=== PATIENT | female | born 1975 | race Caucasian/White ===

== ENCOUNTER → 2017-04-19 | Outpatient (REF) | payer OTHER ==
[2017-04-19 12:17] LABS: ALBUMIN 3.4 GM/DL (3.2-5.2); ALBUMIN/GLOBULIN RATIO 0.77 (1.00-1.93); ALKALINE PHOSPHATASE 65 U/L (45-117); ALT/SGPT 48 U/L (12-78); ANION GAP 5 MEQ/L (8-16); AST/SGOT 28 U/L (15-37); BILIRUBIN,TOTAL 0.5 MG/DL (0.2-1.0); BLOOD UREA NITROGEN 17 MG/DL (7-18); CALCIUM LEVEL 8.6 MG/DL (8.5-10.1); CARBON DIOXIDE LEVEL 28 MEQ/L (21-32); CHLORIDE LEVEL 107 MEQ/L (98-107); CHOLESTEROL LEVEL 183 MG/DL (<200); CREATININE FOR GFR 0.78 MG/DL (0.55-1.02); GLOMERULAR FILTRATION RATE > 60.0 (>58); GLUCOSE, FASTING 136 MG/DL (70-105); POTASSIUM SERUM 4.2 MEQ/L (3.5-5.1); SODIUM LEVEL 140 MEQ/L (136-145); TOTAL PROTEIN 7.8 GM/DL (6.4-8.2); TRIGLYCERIDES LEVEL 253 MG/DL (<150)
[2017-04-24 00:11] LABS: BASOPHILS 1 % (Not Estab.); EOSINOPHILS 2 % (Not Estab.); HCT 41.8 % (34.0-46.6); HGB 14.1 g/dL (11.1-15.9); LYMPHOCYTES 46 % (Not Estab.); MONOCYTES ABSOLUTE 0.3 x10E3/uL (0.1-0.9); WBC 5.5 x10E3/uL (3.4-10.8)
[2017-05-07 10:55] LABS: ABSOLUTE CD4 HELPER 613 /uL (359-1519)
== END ==
LOC: M SFHCPLAZ 04-18 09:52
PROVIDERS: ATTEND Family Medicine
DX: E66.01 Morbid (severe) obesity due to excess calories (principal); B20 Human immunodeficiency virus [HIV] disease

== ENCOUNTER 2017-07-26 19:56 | Emergency (ER) | payer OTHER ==
[2017-07-26] MEDS: NS 1,000 ML IV (22:00)
[2017-07-26] MEDS: ALBUTEROL SULFATE 2.5 MG/0.5 ML INH NEB SOLN NEB (22:34)
[2017-07-26 22:35] LABS: BASO # 0.1 10^3/uL (0.0-0.2); BASO % 0.8 % (0.0-1.0); EOS # 0.2 10^3/uL (0.0-0.50); EOS % 3.2 % (0.0-3.0); HEMATOCRIT 43.3 % (36.0-47.0); IMMATURE GRANULOCYTE % 0.4 % (0-0); LYMPH # 3.1 10^3/uL (1.5-4.5); LYMPH % 40.9 % (24.0-44.0); MEAN CORPUSCULAR HEMOGLOBIN 29.7 pg (27.0-33.0); MEAN CORPUSCULAR HGB CONC 32.3 g/dl (32.0-36.5); MEAN CORPUSCULAR VOLUME 91.9 fl (80.0-96.0); MONO # 0.4 10^3/uL (0.0-0.8); MONO % 5.5 % (0.0-5.0); NEUTROPHILS # 3.7 10^3/uL (1.8-7.7); NEUTROPHILS % 49.2 % (36.0-66.0); PLATELET COUNT, AUTOMATED 190 10^3/uL (150-450); RED BLOOD COUNT 4.71 10^6/uL (4.00-5.40); RED CELL DISTRIBUTION WIDTH 12.3 % (11.5-14.5); WHITE BLOOD COUNT 7.5 10^3/uL (4.0-10.0)
[2017-07-26 22:49] LABS: INR 0.93; PROTHROMBIN TIME 12.5 SECONDS (12.4-14.5)
[2017-07-26 23:04] LABS: LACTIC ACID SEPSIS PROTOCOL 1.7 MMOL/L (0.4-2.0)
[2017-07-26 23:05] LABS: ALBUMIN 3.3 GM/DL (3.2-5.2); ALBUMIN/GLOBULIN RATIO 0.62 (1.00-1.93); ALKALINE PHOSPHATASE 97 U/L (45-117); ALT/SGPT 124 U/L (12-78); ANION GAP 4 MEQ/L (8-16); AST/SGOT 89 U/L (7-37); BILIRUBIN,DIRECT 0.2 MG/DL (0.0-0.2); BILIRUBIN,TOTAL 0.4 MG/DL (0.2-1.0); BLOOD UREA NITROGEN 11 MG/DL (7-18); CALCIUM LEVEL 8.4 MG/DL (8.5-10.1); CARBON DIOXIDE LEVEL 30 MEQ/L (21-32); CHLORIDE LEVEL 102 MEQ/L (98-107); CPK CREATINE PHOSPHOKINASE 59 U/L (26-192); CREATININE FOR GFR 0.81 MG/DL (0.55-1.02); GLOMERULAR FILTRATION RATE > 60.0 (>58); GLUCOSE, FASTING 305 MG/DL (70-105); POTASSIUM SERUM 3.8 MEQ/L (3.5-5.1); SODIUM LEVEL 136 MEQ/L (136-145); TOTAL PROTEIN 8.6 GM/DL (6.4-8.2); TROPONIN I < 0.02 NG/ML (< 0.10)
[2017-07-26 23:06] LABS: MB/CK RELATIVE INDEX 1.69 (< OR =4); NT-PRO BNP 114 PG/ML (<125)
[2017-07-26] MEDS: BACTRIM 160MG/800MG DS TAB PO (23:15)
[2017-07-26 23:40] LABS: CONTROL LINE MONO INT CTR LINE PRESENT; MONO SCRN NEGATIVE (NEGATIVE)
== END 2017-07-27 00:50 | disposition home or self-care (01) ==
LOC: M ED 19:56
DX: J44.0 Chronic obstructive pulmonary disease with (acute) lower respiratory infection (principal); J44.1 Chronic obstructive pulmonary disease with (acute) exacerbation; E11.65 Type 2 diabetes mellitus with hyperglycemia; R07.89 Other chest pain; R26.2 Difficulty in walking, not elsewhere classified; H92.02 Otalgia, left ear; R20.9 Unspecified disturbances of skin sensation; B20 Human immunodeficiency virus [HIV] disease; K76.0 Fatty (change of) liver, not elsewhere classified; I10 Essential (primary) hypertension; G40.909 Epilepsy, unspecified, not intractable, without status epilepticus; F20.0 Paranoid schizophrenia; F17.210 Nicotine dependence, cigarettes, uncomplicated; Z88.5 Allergy status to narcotic agent; Z88.8 Allergy status to other drugs, medicaments and biological substances; Z88.0 Allergy status to penicillin; Z88.3 Allergy status to other anti-infective agents; Z79.899 Other long term (current) drug therapy; Z79.84 Long term (current) use of oral hypoglycemic drugs; Z79.82 Long term (current) use of aspirin
CPT/HCPCS: 71046

== ENCOUNTER → 2017-09-17 | Outpatient (REF) | payer OTHER, MEDICAID ==
[2017-09-17 19:04] LABS: BASO # 0.1 10^3/uL (0.0-0.2); BASO % 0.8 % (0.0-1.0); EOS # 0.1 10^3/uL (0.0-0.50); EOS % 2.3 % (0.0-3.0); HEMATOCRIT 43.5 % (36.0-47.0); HEMOGLOBIN 14.1 g/dl (12.0-16.0); IMMATURE GRANULOCYTE % 0.3 % (0-3.0); LYMPH # 2.8 10^3/uL (1.5-4.5); LYMPH % 46.2 % (24.0-44.0); MEAN CORPUSCULAR HEMOGLOBIN 29.9 pg (27.0-33.0); MEAN CORPUSCULAR HGB CONC 32.4 g/dl (32.0-36.5); MEAN CORPUSCULAR VOLUME 92.4 fl (80.0-96.0); MONO # 0.4 10^3/uL (0.0-0.8); MONO % 5.9 % (0.0-5.0); NEUTROPHILS # 2.7 10^3/uL (1.8-7.7); NEUTROPHILS % 44.5 % (36.0-66.0); PLATELET COUNT, AUTOMATED 193 10^3/uL (150-450); RED BLOOD COUNT 4.71 10^6/uL (4.00-5.40); RED CELL DISTRIBUTION WIDTH 12.9 % (11.5-14.5); WHITE BLOOD COUNT 6.1 10^3/uL (4.0-10.0)
[2017-09-17 19:16] LABS: ALBUMIN 3.5 GM/DL (3.2-5.2); ALBUMIN/GLOBULIN RATIO 0.73 (1.00-1.93); ALKALINE PHOSPHATASE 88 U/L (45-117); ALT/SGPT 115 U/L (12-78); ANION GAP 8 MEQ/L (8-16); AST/SGOT 92 U/L (7-37); BILIRUBIN,TOTAL 0.7 MG/DL (0.2-1.0); BLOOD UREA NITROGEN 9 MG/DL (7-18); CALCIUM LEVEL 8.7 MG/DL (8.5-10.1); CARBON DIOXIDE LEVEL 28 MEQ/L (21-32); CHLORIDE LEVEL 102 MEQ/L (98-107); CHOLESTEROL LEVEL 211 MG/DL (<200); CHOLESTEROL RISK RATIO 6.028 (<5); CREATININE FOR GFR 0.73 MG/DL (0.55-1.30); GLOMERULAR FILTRATION RATE > 60.0 (>58); GLUCOSE, FASTING 196 MG/DL (70-100); HDL CHOLESTEROL 35 MG/DL (>40); LDL CHOLESTEROL 110.4 MG/DL (<100); NON-HDL-C 176 MG/DL; POTASSIUM SERUM 4.2 MEQ/L (3.5-5.1); SODIUM LEVEL 138 MEQ/L (136-145); TOTAL PROTEIN 8.3 GM/DL (6.4-8.2); TRIGLYCERIDES LEVEL 328 MG/DL (<150)
[2017-09-17 19:43] LABS: ESTIMATED AVERAGE GLUCOSE 206 MG/DL (60-110); HEMOGLOBIN A1c 8.8 %
== END ==
LOC: M LAB REF 17:56
DX: Z13.9 Encounter for screening, unspecified (principal)

== ENCOUNTER 2018-04-09 18:47 | Emergency (ER) | payer OTHER, MEDICAID ==
[2018-04-09] MEDS: BUDESONIDE 0.25 MG/2 ML INHALATION SUSPENSION INH (20:23)
[2018-04-09] MEDS: IPRATROPIUM 0.5MG/ALBUTEROL 2.5MG INH SOL UD 3ML (DUONEB)(J7620) NEB ×3 (20:23→20:41)
[2018-04-09 21:31] LABS: BASO # 0.1 10^3/uL (0.0-0.2); BASO % 0.7 % (0.0-1.0); EOS # 0.2 10^3/uL (0.0-0.50); EOS % 2.2 % (0.0-3.0); HEMATOCRIT 42.4 % (36.0-47.0); IMMATURE GRANULOCYTE % 0.3 % (0-3.0); LYMPH # 3.2 10^3/uL (1.5-4.5); LYMPH % 32.4 % (24.0-44.0); MEAN CORPUSCULAR HEMOGLOBIN 30.2 pg (27.0-33.0); MEAN CORPUSCULAR VOLUME 91.6 fl (80.0-96.0); MONO # 0.6 10^3/uL (0.0-0.8); MONO % 6.3 % (0.0-5.0); NEUTROPHILS # 5.7 10^3/uL (1.8-7.7); NEUTROPHILS % 58.1 % (36.0-66.0); PLATELET COUNT, AUTOMATED 209 10^3/uL (150-450); RED BLOOD COUNT 4.63 10^6/uL (4.00-5.40); RED CELL DISTRIBUTION WIDTH 13.3 % (11.5-14.5); WHITE BLOOD COUNT 9.8 10^3/uL (4.0-10.0)
[2018-04-09 21:34] LABS: VENOUS BASE EXCESS -1.2 (-2.0-2.0); VENOUS HCO3 25.8 MEQ/L (23.0-27.0); VENOUS O2 SATURATION 79.1 % (60.0-80.0); VENOUS PARTIAL PRESSURE CO2 51.9 mmHg (38.0-50.0); VENOUS PARTIAL PRESSURE O2 44.3 mmHg (30.0-50.0); VENOUS PH 7.314 UNITS (7.330-7.430); VENOUS TOTAL CO2 27.4 MEQ/L (24.0-28.0)
[2018-04-09 21:37] LABS: CONTROL LINE HCG INT CTR LINE PRESENT; HCG, SERUM QUALITATIVE NEGATIVE (NEGATIVE)
[2018-04-09 21:43] LABS: CONTROL LINE UCG INT CTR LINE PRESENT; URINE PREG TEST NEGATIVE (NEGATIVE)
[2018-04-09 21:47] LABS: ANION GAP 6 MEQ/L (8-16); BLOOD UREA NITROGEN 9 MG/DL (7-18); CALCIUM LEVEL 8.9 MG/DL (8.5-10.1); CARBON DIOXIDE LEVEL 28 MEQ/L (21-32); CHLORIDE LEVEL 106 MEQ/L (98-107); CK-MB VALUE MASS < 1.0 NG/ML (<3.6); CPK CREATINE PHOSPHOKINASE 90 U/L (26-192); CREATININE FOR GFR 0.77 MG/DL (0.55-1.30); GLOMERULAR FILTRATION RATE > 60.0 (>58); GLUCOSE, FASTING 143 MG/DL (70-100); MB/CK RELATIVE INDEX 1.11 (< OR =4); POTASSIUM SERUM 3.7 MEQ/L (3.5-5.1); SODIUM LEVEL 140 MEQ/L (136-145); TROPONIN I < 0.02 NG/ML (< 0.10)
[2018-04-09 22:01] LABS: LACTIC ACID SEPSIS PROTOCOL 1.5 MMOL/L (0.4-2.0)
[2018-04-10] MEDS: BENZONATATE 100 MG CAP PO (00:39)
[2018-04-10] MEDS: ACETAMINOPHEN TAB 650MG DOSE (2X325MG) PO (00:39)
[2018-04-10] MEDS: AZITHROMYCIN 250 MG TAB PO (00:40)
== END 2018-04-10 00:45 | disposition home or self-care (01) ==
LOC: M ED 04-10 00:45
DX: J44.0 Chronic obstructive pulmonary disease with (acute) lower respiratory infection (principal); R94.31 Abnormal electrocardiogram [ECG] [EKG]; J45.909 Unspecified asthma, uncomplicated; F17.210 Nicotine dependence, cigarettes, uncomplicated; Z88.5 Allergy status to narcotic agent; Z88.8 Allergy status to other drugs, medicaments and biological substances; Z88.0 Allergy status to penicillin; Z79.82 Long term (current) use of aspirin; Z79.899 Other long term (current) drug therapy
CPT/HCPCS: 71046

== ENCOUNTER → 2018-04-25 | Outpatient (REF) | payer OTHER ==
[2018-04-25 16:17] LABS: ALBUMIN 3.4 GM/DL (3.2-5.2); ALBUMIN/GLOBULIN RATIO 0.77 (1.00-1.93); ALKALINE PHOSPHATASE 73 U/L (45-117); ALT/SGPT 49 U/L (12-78); ANION GAP 7 MEQ/L (8-16); AST/SGOT 40 U/L (7-37); BILIRUBIN,TOTAL 0.6 MG/DL (0.2-1.0); BLOOD UREA NITROGEN 10 MG/DL (7-18); C REACTIVE PROTEIN QUANTITATIV 3.24 MG/DL (0.00-0.30); CARBON DIOXIDE LEVEL 30 MEQ/L (21-32); CHLORIDE LEVEL 105 MEQ/L (98-107); CREATININE FOR GFR 0.86 MG/DL (0.55-1.30); GLOMERULAR FILTRATION RATE > 60.0 (>58); GLUCOSE, FASTING 153 MG/DL (70-100); RHEUMATOID FACTOR QUANT < 10.0 IU/ML (<15.0); SODIUM LEVEL 142 MEQ/L (136-145); TOTAL PROTEIN 7.8 GM/DL (6.4-8.2)
[2018-04-25 16:37] LABS: ERYTHROCYTE SEDIMENTATION RATE 58 mm/hr (0-20)
[2018-05-01 00:11] LABS: % CD8 Pos Lymph 64.4 % (12.0-35.5); %CD4 Pos Lymphs 25.1 % (30.8-58.5); ABS Eosinophils 0.1 x10E3/uL (0.0-0.4); ABS Lymphs 2.2 x10E3/uL (0.7-3.1); ABS Monocytes 0.4 x10E3/uL (0.1-0.9); ABS Neutophils 3.2 x10E3/uL (1.4-7.0); ANA (HEP2) Negative (.); Abs CD4 Helper 552 /uL (359-1519); Abs CD8 Suppres 1417 /uL (109-897); CD4/CD8 Ratio 0.39 (0.92-3.72); CYCLIC CITRULLINATED PEPTIDE 8 units (0-19); Eosinophils 2 % (Not Estab.); HCT 40.3 % (34.0-46.6); HGB 13.6 g/dL (11.1-15.9); HIV-1 RNA PCR QUANT 2 LC550285 2030 copies/mL (.); HIV-1 RNA PCR QUANT 3 LC550285 3.307 (.); Immature Grans 0 % (Not Estab.); Lyme Disease IgG/IgM Antibodie <0.91 ISR (0.00-0.90); Lyme Disease IgM Ab Quantitati <0.80 index (0.00-0.79); Lymphocytes 37 % (Not Estab.); MCH 30.5 pg (26.6-33.0); MCHC 33.7 g/dL (31.5-35.7); MCV 90 fL (79-97); Monocytes 6 % (Not Estab.); Neutrophils 54 % (Not Estab.); Platelets 256 x10E3/uL (150-379); RBC 4.46 x10E6/uL (3.77-5.28); RDW 14.4 % (12.3-15.4); WBC 5.9 x10E3/uL (3.4-10.8)
== END ==
LOC: M SFHCPLAZ 13:53
DX: B20 Human immunodeficiency virus [HIV] disease (principal); M25.561 Pain in right knee
CPT/HCPCS: 80053

== ENCOUNTER → 2018-05-07 | Outpatient (CLI) | payer OTHER | LOC: M RAD 13:41 | DX: R05 Cough (principal) | CPT/HCPCS: 71046 ==

== ENCOUNTER 2018-05-13 09:14 | Emergency (ER) | payer OTHER | END 2018-05-13 09:35 | disposition left against medical advice (07) | LOC: M ED 09:14 | DX: Z53.29 Procedure and treatment not carried out because of patient's decision for other reasons (principal) ==

== ENCOUNTER → 2018-05-14 | Outpatient (REF) | payer OTHER ==
[2018-05-17 14:15] LABS: HIV-1 RNAby PCR 60
== END ==
LOC: M SFHCPLAZ 11:19
DX: B20 Human immunodeficiency virus [HIV] disease (principal)
CPT/HCPCS: 36415

== ENCOUNTER → 2018-09-10 | Outpatient (REF) | payer OTHER ==
[~2018-09-10] MED LIST: ALBU83IN INH; APTI1TAB2; ASPI81TA85 PO; AZIT-12 PO; BACT800T5 PO; CORE12.5 PO; HYDR-3363 PO; JANU25TA; KEPP1TAB PO; LEVE500XR PO; LEVETIRACETAM; METF10004 PO; PULM0.25 NEB; TESS100C PO; TOPI25CA PO; TRIU1TAB PO
[2018-09-10 15:45] LABS: APPEARANCE, URINE CLOUDY (CLEAR); BACTERIA, URINE AUTO 3+ (NEGATIVE); BILIRUBIN, URINE AUTO NEGATIVE (NEGATIVE); BLOOD, URINE BLOOD 2+ (NEGATIVE); COLOR, URINE YELLOW (YELLOW); GLUCOSE, URINE (UA) AUTO NEGATIVE (NEGATIVE); KETONE, URINE AUTO NEGATIVE (NEGATIVE); LEUKOCYTE ESTERASE, URINE AUTO NEGATIVE (NEGATIVE); MUCUS, URINE SMALL (NEGATIVE); NITRITE, URINE AUTO NEGATIVE (NEGATIVE); PROTEIN, URINE AUTO NEGATIVE (NEGATIVE); RBC, URINE AUTO 7 /HPF (0-3); SPECIFIC GRAVITY URINE AUTO 1.004 (1.002-1.035); SQUAMOUS EPITHELIAL CELL UR AU 4 /HPF (0-6); UROBILINOGEN, URINE AUTO 0.2 mg/dL (0.0-2.0); WBC, URINE AUTO 2 /HPF (0-3)
[2018-09-10 16:20] LABS: HEMOGLOBIN A1c 8.2 %
[2018-09-10 16:27] LABS: ALBUMIN 3.3 GM/DL (3.2-5.2); ALT/SGPT 47 U/L (12-78); BILIRUBIN,TOTAL 0.5 MG/DL (0.2-1.0); BLOOD UREA NITROGEN 10 MG/DL (7-18); CALCIUM LEVEL 8.5 MG/DL (8.5-10.1); CARBON DIOXIDE LEVEL 31 MEQ/L (21-32); CHLORIDE LEVEL 104 MEQ/L (98-107); CREATININE FOR GFR 0.65 MG/DL (0.55-1.30); GLOMERULAR FILTRATION RATE > 60.0 (>58); GLUCOSE, FASTING 159 MG/DL (70-100); POTASSIUM SERUM 3.8 MEQ/L (3.5-5.1); SODIUM LEVEL 140 MEQ/L (136-145); TOTAL PROTEIN 7.6 GM/DL (6.4-8.2)
[2018-09-10 17:31] LABS: CHLAMYDIA DNA AMPLIFICATION NEGATIVE (NEGATIVE); GC DNA AMPLIFICATION NEGATIVE (NEGATIVE)
[2018-09-14 00:07] LABS: %CD4 Pos Lymphs 28.7 % (30.8-58.5); ABS Eosinophils 0.2 x10E3/uL (0.0-0.4); ABS Lymphs 2.7 x10E3/uL (0.7-3.1); ABS Monocytes 0.2 x10E3/uL (0.1-0.9); Abs CD4 Helper 775 /uL (359-1519); Abs CD8 Suppres 1701 /uL (109-897); CD4/CD8 Ratio 0.46 (0.92-3.72); Eosinophils 3 % (Not Estab.); HCT 41.3 % (34.0-46.6); HGB 13.2 g/dL (11.1-15.9); HIV-1 RNA PCR QUANT 2 LC550285 60 copies/mL (.); HIV-1 RNA PCR QUANT 3 LC550285 1.778 (.); Immature Grans 0 % (Not Estab.); Lymphocytes 44 % (Not Estab.); MCH 28.8 pg (26.6-33.0); MCV 90 fL (79-97); Monocytes 3 % (Not Estab.); Neutrophils 50 % (Not Estab.); Platelets 213 x10E3/uL (150-379); RBC 4.58 x10E6/uL (3.77-5.28); RDW 13.2 % (12.3-15.4); WBC 6.1 x10E3/uL (3.4-10.8)
== END ==
LOC: M SFHCPLAZ 13:22
PROVIDERS: ATTEND Internal Medicine Infectious Disease
DX: B20 Human immunodeficiency virus [HIV] disease (principal); E11.9 Type 2 diabetes mellitus without complications

== ENCOUNTER 2019-02-01 22:25 | Emergency (ER) | payer OTHER ==
[~2019-02-01] VITALS: Ht 162.6 cm; Wt 161.8 kg
[~2019-02-01 22:25] MED LIST changes: -TOPI25CA PO; +TOPI25CA3 PO
[2019-02-01 23:01] LABS: BASO # 0.1 10^3/uL (0.0-0.2); BASO % 0.9 % (0.0-1.0); EOS # 0.2 10^3/uL (0.0-0.50); EOS % 2.5 % (0.0-3.0); HEMATOCRIT 47.5 % (36.0-47.0); HEMOGLOBIN 14.8 g/dl (12.0-15.5); LYMPH # 3.3 10^3/uL (1.5-4.5); LYMPH % 37.7 % (24.0-44.0); MEAN CORPUSCULAR HEMOGLOBIN 28.9 pg (27.0-33.0); MEAN CORPUSCULAR HGB CONC 31.2 g/dl (32.0-36.5); MEAN CORPUSCULAR VOLUME 92.8 fl (80.0-96.0); MONO # 0.6 10^3/uL (0.0-0.8); MONO % 6.6 % (0.0-5.0); NEUTROPHILS # 4.6 10^3/uL (1.8-7.7); NEUTROPHILS % 52.2 % (36.0-66.0); PLATELET COUNT, AUTOMATED 213 10^3/uL (150-450); RED BLOOD COUNT 5.12 10^6/uL (4.00-5.40); WHITE BLOOD COUNT 8.8 10^3/uL (4.0-10.0)
[2019-02-01 23:14] LABS: INR 1.01
[2019-02-01 23:26] LABS: ALBUMIN 3.4 GM/DL (3.2-5.2); ALT/SGPT 56 U/L (12-78); BILIRUBIN,TOTAL 0.5 MG/DL (0.2-1.0); BLOOD UREA NITROGEN 14 MG/DL (7-18); CALCIUM LEVEL 9.1 MG/DL (8.5-10.1); CARBON DIOXIDE LEVEL 30 MEQ/L (21-32); CHLORIDE LEVEL 103 MEQ/L (98-107); CK-MB VALUE MASS < 1.0 NG/ML (<3.6); CPK CREATINE PHOSPHOKINASE 53 U/L (26-192); CREATININE FOR GFR 1.05 MG/DL (0.55-1.30); GLOMERULAR FILTRATION RATE > 60.0 (>58); GLUCOSE, FASTING 272 MG/DL (70-100); LIPASE 122 U/L (73-393); MB/CK RELATIVE INDEX 1.89 (< OR =4); POTASSIUM SERUM 3.8 MEQ/L (3.5-5.1); SODIUM LEVEL 140 MEQ/L (136-145); TOTAL PROTEIN 8.3 GM/DL (6.4-8.2); TROPONIN I < 0.02 NG/ML (< 0.10)
[2019-02-01] MEDS ORDERED: GI COCKTAIL 50ML BTL(HYOSCYAMINE/MAALOX/LIDOCAINE VISCOUS)(1:3:1) PO ONE (23:45)
[2019-02-02 00:26] VITALS: BP 142/82
--- NOTE | 2019-02-02 21:19 | ECGEPIP ---
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
--- NOTE | 2019-02-03 07:51 | REP ---
Portable chest, 10:51 p.m., single AP view with the patient upright: Comparison is 05/07/2018. There is a right lower lobe infiltrate as an interval change. No pleural effusion. Left lung is clear. Cardiac size normal. The luly, mediastinum, skeletal structures are unremarkable. Impression: Right lower lobe infiltrate. Electronically Signed by Rai Kessler MD 02/02/2019 07:56 A
--- NOTE | 2019-02-10 08:06 | ED PDOC ---
Post-Departure Follow-Up dr maribeth modi faxed formal report of cxr for fu Bella Talbert MD Feb 10, 2019 08:06
== END 2019-02-02 00:29 | disposition home or self-care (01) ==
LOC: M ED 22:25
DX: K21.9 Gastro-esophageal reflux disease without esophagitis (principal); E11.9 Type 2 diabetes mellitus without complications; I25.10 Atherosclerotic heart disease of native coronary artery without angina pectoris; Z79.899 Other long term (current) drug therapy; Z79.82 Long term (current) use of aspirin; Z88.0 Allergy status to penicillin; Z88.5 Allergy status to narcotic agent; Z88.8 Allergy status to other drugs, medicaments and biological substances; F17.210 Nicotine dependence, cigarettes, uncomplicated

== ENCOUNTER 2019-03-02 19:36 | Observation (INO) | payer OTHER ==
[~2019-03-02] VITALS: Ht 162.6 cm; Wt 138.0 kg
[2019-03-02 20:08] LABS: BASO # 0.1 10^3/uL (0.0-0.2); BASO % 1.1 % (0.0-1.0); EOS # 0.2 10^3/uL (0.0-0.50); EOS % 3.2 % (0.0-3.0); HEMOGLOBIN 13.6 g/dl (12.0-15.5); LYMPH # 2.1 10^3/uL (1.5-4.5); MEAN CORPUSCULAR HEMOGLOBIN 29.1 pg (27.0-33.0); MEAN CORPUSCULAR HGB CONC 31.6 g/dl (32.0-36.5); MEAN CORPUSCULAR VOLUME 92.1 fl (80.0-96.0); MONO # 0.5 10^3/uL (0.0-0.8); MONO % 8.2 % (0.0-5.0); NEUTROPHILS # 2.9 10^3/uL (1.8-7.7); NEUTROPHILS % 51.3 % (36.0-66.0); PLATELET COUNT, AUTOMATED 177 10^3/uL (150-450); RED BLOOD COUNT 4.67 10^6/uL (4.00-5.40); WHITE BLOOD COUNT 5.7 10^3/uL (4.0-10.0)
[2019-03-02] MEDS ORDERED: KETOROLAC 30 MG/ML VIAL (J1885) IV ONE (20:30)
[2019-03-02 20:33] LABS: INR 1.04; PARTIAL THROMBOPLASTIN TIME 28.5 SECONDS (25.0-38.4); PROTHROMBIN TIME 13.3 SECONDS (11.8-14.0)
[2019-03-02] MEDS ORDERED: KETOROLAC 30 MG/ML VIAL (J1885) As Ordered ONE (20:34)
[2019-03-02 20:51] LABS: ALBUMIN 3.1 GM/DL (3.2-5.2); ALT/SGPT 43 U/L (12-78); BILIRUBIN,DIRECT 0.1 MG/DL (0.0-0.2); BILIRUBIN,TOTAL 0.5 MG/DL (0.2-1.0); BLOOD UREA NITROGEN 10 MG/DL (7-18); CALCIUM LEVEL 9.1 MG/DL (8.5-10.1); CARBON DIOXIDE LEVEL 33 MEQ/L (21-32); CHLORIDE LEVEL 105 MEQ/L (98-107); CK-MB VALUE MASS < 1.0 NG/ML (<3.6); CPK CREATINE PHOSPHOKINASE 45 U/L (26-192); CREATININE FOR GFR 0.77 MG/DL (0.55-1.30); GLOMERULAR FILTRATION RATE > 60.0 (>58); GLUCOSE, FASTING 232 MG/DL (70-100); LIPASE 115 U/L (73-393); MB/CK RELATIVE INDEX 2.22 (< OR =4); POTASSIUM SERUM 3.8 MEQ/L (3.5-5.1); SODIUM LEVEL 141 MEQ/L (136-145); TROPONIN I < 0.02 NG/ML (< 0.10)
[2019-03-02] MEDS ORDERED: ISOVUE-370 76% 100ML VIAL (Q9967) As Ordered ONE (21:01)
--- NOTE | 2019-03-02 21:50 | REPVR ---
EXAM: CT Angiography Chest With Contrast EXAM DATE/TIME: 03/02/2019 9:13 PM CLINICAL HISTORY: 43 years old, female; Chest pain; Additional info: Chest pain, syncope TECHNIQUE: Imaging protocol: Computed tomographic angiography images of the chest with intravenous contrast using CT angiography protocol. 3D rendering: MIP reconstructed images were created and reviewed. Radiation optimization: All CT scans at this facility use at least one of these dose optimization techniques: automated exposure control; mA and/or kV adjustment per patient size (includes targeted exams where dose is matched to clinical indication); or iterative reconstruction. Contrast material: ISOVUE 370; Contrast volume: 100 ml; Contrast route: IV; COMPARISON: CR PORTABLE CHEST X-RAY 02/01/2019 10:43 PM FINDINGS: Pulmonary arteries: Inadequate opacification of the pulmonary arteries. Pulmonary embolism is not excluded. The main pulmonary artery measures 28 mm. Aorta: The ascending thoracic aorta measures 33 mm. Lungs: Unremarkable. No consolidation. No masses. Pleural space: Unremarkable. No pneumothorax. No pleural effusion. Heart: Coronary artery calcifications are present. Gallbladder and bile ducts: Status post cholecystectomy. Lymph nodes: Unremarkable. No enlarged lymph nodes. Bones/joints: Unremarkable. No acute fracture. Soft tissues: Unremarkable. IMPRESSION: 1. Inadequate opacification of the pulmonary arteries. Pulmonary embolism is not excluded. 2. Status post cholecystectomy. 3. Otherwise negative CTA chest. Electronically signed by: Garry Mccormack On 03/02/2019 21:50:02 PM
--- NOTE | 2019-03-02 21:58 | REPVR ---
EXAM: CT Abdomen and Pelvis With Contrast EXAM DATE/TIME: 03/02/2019 9:13 PM CLINICAL HISTORY: 43 years old, female; Abdominal pain; Generalized; Additional info: L sided abd pain TECHNIQUE: Imaging protocol: Computed tomography images of the abdomen and pelvis with intravenous contrast. Radiation optimization: All CT scans at this facility use at least one of these dose optimization techniques: automated exposure control; mA and/or kV adjustment per patient size (includes targeted exams where dose is matched to clinical indication); or iterative reconstruction. Contrast material: ISOVUE 370; Contrast volume: 100 ml; Contrast route: IV; COMPARISON: No relevant prior studies available. FINDINGS: Liver: The liver attenuation is 39 Hounsfield units and the spleen is 72 Hounsfield units. Gallbladder and bile ducts: Normal. No calcified stones. No ductal dilation. Pancreas: Normal. No ductal dilation. Spleen: Normal. No splenomegaly. Adrenals: Normal. No mass. Kidneys and ureters: Nonobstructing left renal calculi in the lower pole. There is a large calculus in the left renal pelvis measuring 14 x 9 x 8 mm with left renal sinus edema which emanates medial to the left kidney. No significant hydronephrosis. No left ureteral calculi. No urothelial thickening in the left renal pelvis or proximal ureter. Stomach and bowel: Normal. No obstruction. No mucosal thickening. Appendix: A normal appendix is seen. Intraperitoneal space: Normal. No free air. No significant fluid collection. Vasculature: Normal. No abdominal aortic aneurysm. Lymph nodes: Borderline bilateral inguinal nodes which are nonspecific. Bladder: Unremarkable as visualized. Reproductive: Status post hysterectomy. Bones/joints: No acute fracture. No dislocation. Soft tissues: Status post ventral wall hernia repair with mesh in the hypogastric region. There is small recurrent fat filled ventral wall hernia extending from the cephalad aspect of the mesh. Minimal fat filled umbilical hernia. IMPRESSION: 1. Large calculus in the left renal pelvis measuring 14 x 9 x 8 mm. There is left renal sinus edema which extends medial to the left kidney with no significant hydronephrosis. Findings may reflect intermittent ball-valve UPJ obstruction or possibly secondary inflammation or infection. There are small nonobstructing left renal calculi in the lower pole. 2. Status post hysterectomy. 3. Status post ventral wall hernia repair with mesh with small recurrent fat filled ventral wall hernia along the cephalad aspect of the mesh. Electronically signed by: Garry Mccormack On 03/02/2019 21:57:39 PM
[2019-03-02 23:00] LABS: D-DIMER QUANT 534.16 ng/ml (<500)
[2019-03-03] MEDS ORDERED: BENZ-18 PO (01:13)
[2019-03-03] MEDS ORDERED: ALBU83IN INH (01:13)
[2019-03-03] MEDS ORDERED: BASA100I SC ×2 (01:13)
[2019-03-03] MEDS ORDERED: BUDE0.254 INH (01:13)
[2019-03-03] MEDS ORDERED: STEG5TAB PO (01:14)
[2019-03-03 04:00] VITALS: BP 122/69
[2019-03-03] MEDS: HEPARIN SOD (PORCINE) 5000 UNITS/ML VIAL SC SCH ×3 (05:18→21:54)
[2019-03-03] MEDS ORDERED: GLUCAGON FOR INJ 1 MG VIAL (J1610) SC PRN (05:30)
[2019-03-03] MEDS ORDERED: GLUCOSE 4 GM CHEW TABLET PO PRN (05:30)
[2019-03-03] MEDS ORDERED: DEXTROSE 50% 50 ML SYRINGE IV PRN (05:30)
[2019-03-03] MEDS ORDERED: BENZONATATE 100 MG CAP PO PRN (05:45)
[2019-03-03 06:13] LABS: HEMATOCRIT 40.6 % (36.0-47.0); HEMOGLOBIN 12.9 g/dl (12.0-15.5); MEAN CORPUSCULAR HEMOGLOBIN 29.3 pg (27.0-33.0); MEAN CORPUSCULAR HGB CONC 31.8 g/dl (32.0-36.5); MEAN CORPUSCULAR VOLUME 92.3 fl (80.0-96.0); PLATELET COUNT, AUTOMATED 170 10^3/uL (150-450); WHITE BLOOD COUNT 5.2 10^3/uL (4.0-10.0)
[2019-03-03 06:21] LABS: BLOOD UREA NITROGEN 12 MG/DL (7-18); CARBON DIOXIDE LEVEL 28 MEQ/L (21-32); CHLORIDE LEVEL 106 MEQ/L (98-107); CREATININE FOR GFR 0.84 MG/DL (0.55-1.30); GLOMERULAR FILTRATION RATE > 60.0 (>58); GLUCOSE, FASTING 223 MG/DL (70-100); MAGNESIUM LEVEL 1.9 MG/DL (1.8-2.4); POTASSIUM SERUM 3.9 MEQ/L (3.5-5.1); SODIUM LEVEL 141 MEQ/L (136-145)
--- NOTE | 2019-03-03 06:46 | HPEPDOC ---
[facility] Medical History & Physical Date of Admission Mar 03, 2019 Date of Service: Mar 03, 2019 History and Physical CHIEF COMPLAINT: [epigastric pain ] HISTORY OF PRESENT ILLNESS: [This is a 43 yo female with multiple pmhx who presented to the ed for epigastric pain and syncope for a few minutes today. She denied any prodrome symptoms or any seizure like activities. She also said the day prior had chest tightness with some nausea the day before, but she thought it may have been because she was lifting a 13lb baby. She also stated that over night into yesterday morning she was vomiting and having diarrhea as well, and did not have good po intake. ] PAST MEDICAL HISTORY: 1. [dm2]. 2. [hiv - last cd4 check 6 mos ago, pt doesn't remember what it was ]. 3. [copd]. 4. seizure 5.MS 6 ovarian caner PAST SURGICAL HISTORY: 1. [partial hysterectomy ]. 2. c section '3. abdominal hernia repair 4 cholecystectomy SOCIAL HISTORY: , lives with her and children disabled smokes 1/2-1ppd for 21 yrs denied etoh and drug use FAMILY HISTORY: mother - ovarian cancer and dm2 ALLERGIES: Please see below. HOME MEDICATIONS: Please see below. LABORATORY DATA: See below. IMAGING: [ CTA CHEST IMPRESSION: 1. Inadequate opacification of the pulmonary arteries. Pulmonary embolism is not excluded. 2. Status post cholecystectomy. 3. Otherwise negative CTA chest. CT abd IMPRESSION: 1. Large calculus in the left renal pelvis measuring 14 x 9 x 8 mm. There is left renal sinus edema which extends medial to the left kidney with no significant hydronephrosis. Findings may reflect intermittent ball-valve UPJ obstruction or possibly secondary inflammation or infection. There are small nonobstructing left renal calculi in the lower pole. 2. Status post hysterectomy. 3. Status post ventral wall hernia repair with mesh with small recurrent fat filled ventral wall hernia along the cephalad aspect of the mesh. ] MICROBIOLOGY: Please see below. ASSESSMENT and plan gastroenteritis - c/w ivf - f/u gi panel -antiemetic chest pain 2 days ago resolved f/u repeat troponin normal ekg per endorsement - did not see one 1st troponin negative syncope - could be from volume depletion -pt said it did not feel like her previous seizure episodes -tele monitor -hydration ELEVATED DDIMER -cta chest - inconclusive for PE -f/u vq scan -stable//asymptomatic -will hold off o AC kidney stones - urologist consult ordered- left mgs - pls f/u hiv f/u cd4 count continue with home meds dvt ppx full code Vital Signs Vital Signs Date Time Temp Pulse Resp B/P (MAP) Pulse Ox O2 Delivery O2 Flow Rate FiO2 03/02/19 20:44 74 112/68 (83) 79 112/71 (85) 80 115/76 (89) 03/02/19 19:47 97.1 20 100 Room Air Laboratory Data Labs 24H Laboratory Tests 2 03/02/19 20:01: Immature Granulocyte % (Auto) 0.2, White Blood Count 5.7, Red Blood Count 4.67, Hemoglobin 13.6, Hematocrit 43.0, Mean Corpuscular Volume 92.1, Mean Corpuscular Hemoglobin 29.1, Mean Corpuscular Hemoglobin Concent 31.6L, Red Cell Distributi on Width 13.0, Platelet Count 177, Neutrophils (%) (Auto) 51.3, Lymphocytes (%) (Auto) 36.0, Monocytes (%) (Auto) 8.2H, Eosinophils (%) (Auto) 3.2H, Basophils (%) (Auto) 1.1H, Neutrophils # (Auto) 2.9, Lymphocytes # (Auto) 2.1, Monocytes # (Auto) 0.5, Eosinophils # (Auto) 0.2, Basophils # (Auto) 0.1, Nucleated Red Blood Cells % (auto) 0.0, Prothrombin Time 13.3, Prothromb Time International Ratio 1.04, Activated Partial Thromboplast Time 28.5, D-Dimer, Quantitative 534.16H, Anion Gap 3L, Glomerular Filtration Rate > 60.0, Calcium Level 9.1, Aspartate Amino Transf (AST/SGOT) 20, Alanine Aminotransferase (ALT/SGPT) 43, Alkaline Phosphatase 74, Total Bilirubin 0.5, Direct Bilirubin 0.1, Total C reatine Kinase 45, Creatine Kinase MB < 1.0, Creatine Kinase MB Relative Index 2.22, Troponin I < 0.02, Total Protein 7.0, Albumin 3.1L, Albumin/Globulin Ratio 0.79L, Lipase 115 03/03/19 00:35: Urine Color YELLOW, Urine Appearance HAZY, Urine pH 6.0, Urine Specific [place] 1.045, Urine Protein NEGATIVE, Urine Glucose (UA) 3+H, Urine Ketones NEGATIVE, Urine Blood 2+H, Urine Nitrite NEGATIVE, Urine Bilirubin NEGATIVE, Urine Urobilinogen 0.2, Urine Leukocyte Esterase NEGATIVE, Urine WBC (Auto) 1, Urine RBC (Auto) 47H, Urine Hyaline Casts (Auto) 0, Urine Bacteria (Auto) NEGATIVE, Urine Squamous Epithelial Cells 8, Urine Mucus (Auto) SMALL, Urine Sperm (Auto) CBC/BMP Laboratory Tests 03/02/19 20:01 Red Blood Count 4.67, Mean Corpuscular Volume 92.1, Mean Corpuscular Hemoglobin 29.1, Mean Corpuscular Hemoglobin Concent 31.6 L, Red Cell Distribution Width 13.0, Neutrophils (%) (Auto) 51.3, Lymphocytes (%) (Auto) 36.0, Monocytes (%) (Auto) 8.2 H, Eosinophils (%) (Auto) 3.2 H, Basophils (%) (Auto) 1.1 H, Neutrophils # (Auto) 2.9, Lymphocytes # (Auto) 2.1, Monocytes # (Auto) 0.5, Eosinophils # (Auto) 0.2, Basophils # (Auto) 0.1 Home Medications Scheduled Abacavir/Dolutegravir/Lamivudi (Triumeq 600-50-300 mg Tablet) 1 Tab Tab, 1 TAB PO DAILY Aspirin (Aspir 81) 81 Mg Tab, 81 MG PO DAILY Budesonide (Budesonide) 0.25 Mg/2 Ml Ampul.neb, 1 INHALATION INH BID Carvedilol (Coreg) 12.5 Mg Tab, 12.5 MG PO BID Ertugliflozin Pidolate (Steglatro) 5 Mg Tablet, 5 MG PO DAILY Insulin Glargine,Hum.rec.anlog (Basaglar Kwikpen U-100) 100 Unit/1 Ml Insuln.pen, 10 UNIT SC QAM Insulin Glargine,Hum.rec.anlog (Basaglar Kwikpen U-100) 100 Unit/1 Ml Insuln.pen, 50 UNIT SC QPM Topiramate (Topiramate) 25 Mg Cap, 25 MG PO TID Scheduled PRN Albuterol Sulf (Albuterol Sulfate) 2.5 Mg/3 Ml Vial.neb, 1 INHALATION INH Q4H PRN for SHORTNESS OF BREATH Benzonatate (Benzonatate) 100 Mg Capsule, 100 MG PO TID PRN for COUGH Allergies Coded Allergies: Penicillins (Verified Allergy, Intermediate, HIVES, 02/01/19) buprenorphine (Verified Allergy, Intermediate, HIVES, 02/01/19) nitroglycerin (Verified Allergy, Intermediate, "STOS HEART", 02/01/19) miconazole (Verified Allergy, Unknown, RASH, 02/01/19) morphine (Verified Adverse Reaction, Unknown, RESPIRATORY.DEPRESSION, 02/01/19) A-FIB/CHADSVASC A-FIB History Current/History of A-Fib/PAF?: No Current PO Anticoag Therapy: No Age/Risk Factor Scoring CHADSVASC: CHADSVASC Response (Comments) Value Age Risk Factor Age < 65 years old 0 Gender Risk Factor Female 1 Hx of CHF No 0 Hx of HTN Yes 1 Hx of Stroke/TIA/or VTE No 0 Hx of Diabetes Yes 1 Hx of Vascular Disease No 0 Total 3 Treatment Treatment ordered: NONE Reason Anticoagulant not given: Not indicated/[id number] DEUCE GARLAND MD Mar 03, 2019 01:38
[2019-03-03] MEDS: NS 1,000 ML IV SCH ×2 (07:00→23:51)
[2019-03-03] MEDS: DOCUSATE SODIUM 100 MG CAP PO SCH ×2 (08:16→21:00)
[2019-03-03] MEDS: HumaLOG INSULIN (NovoLOG) PER UNIT SC SCH ×3 (08:23→18:25)
[2019-03-03] MEDS: ASPIRIN 81 MG ENTERIC TAB PO SCH (08:23)
[2019-03-03] MEDS: CARVedilol 12.5 MG TAB PO SCH ×2 (08:24→21:50)
[2019-03-03] MEDS: TOPIRAMATE (TopAMAX) 25 MG TAB PO SCH ×3 (08:24→21:53)
[2019-03-03] MEDS: ACETAMINOPHEN TAB 650MG DOSE (2X325MG) PO PRN ×3 (08:25→23:52)
[2019-03-03] MEDS ORDERED: ENTER DRUG NAME HERE (PATIENT'S OWN MED) PO SCH (09:00)
[2019-03-03 09:07] LABS: CHOLESTEROL LEVEL 138 MG/DL (<200); HDL CHOLESTEROL 30 MG/DL (>40); LDL CHOLESTEROL 64 MG/DL (<100); NON-HDL-C 108 MG/DL; TRIGLYCERIDES LEVEL 220 MG/DL (<150); TROPONIN I < 0.02 NG/ML (< 0.10)
[2019-03-03 10:04] LABS: HEMOGLOBIN A1c 8.9 %
[2019-03-03] MEDS: levETIRAcetam 250MG TABLET (KEPPRA) PO SCH ×2 (10:36→21:50)
[2019-03-03] MEDS: TRIUMEQ PO SCH (17:48)
--- NOTE | 2019-03-03 18:17 | REP ---
Bilateral lower extremity Duplex Doppler venous ultrasound: Real time compression and duplex Doppler interrogation of the bilateral lower extremity deep venous system is performed. Bilaterally, the common femoral, superficial femoral and popliteal veins are fully compressible with transducer pressure and demonstrate normal spontaneous and phasic flow, without evidence of deep venous thrombosis. Impression: No evidence of deep venous thrombosis of the bilateral lower extremity femoral popliteal venous system. A Schroeder's cyst is seen in the left popliteal fossa measuring 3.3 x 1.1 x 2.8 cm. Enlarged right inguinal lymph node measures 4.4 x 1.6 x 1.6 cm. Two enlarged lymph nodes are seen in the left inguinal region, the larger measuring 4.2 x 1.2 x 3.2 cm. Electronically Signed by Rai Gill MD 03/03/2019 06:09 P
--- NOTE | 2019-03-03 18:50 | REP ---
CHEST, SINGLE VIEW: There is no evidence of acute infiltrate. No pleural effusion is seen. The heart is normal in size. The mediastinal silhouette is unremarkable. The visualized osseous structures are intact. IMPRESSION: No acute pulmonary disease. Electronically Signed by Rai Gill MD 03/04/2019 11:40 P
--- NOTE | 2019-03-03 19:27 | REP ---
V/Q SCAN: Following the intravenous administration of 5.5 millicuries of technetium 99M tagged MAA and inhalation of 1 millicurie of Technetium 99M DTPA aerosol. Multiple images of the lung recinos are obtained in various projections. A couple of subsegmental profusion defects in the right lung demonstrate larger ventilation defects. In the left lung a few scattered nonsegmental profusion defects demonstrate larger ventilation defects. IMPRESSION :Low probability of pulmonary embolism. Electronically Signed by Rai Gill MD 03/04/2019 11:44 P
--- NOTE | 2019-03-03 20:18 | ECGEPIP ---
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
[2019-03-03] MEDS ORDERED: LEVEMIR (INSULIN DETEMIR) 1 UNITS/0.01ML SC SCH (21:00)
[2019-03-03] MEDS ORDERED: HumaLOG INSULIN (NovoLOG) PER UNIT SC SCH (21:00)
[2019-03-03] MEDS: FAMOTIDINE 20 MG TAB PO SCH (21:50)
[2019-03-03 22:00] VITALS: BP 119/70
[2019-03-04] MEDS: HEPARIN SOD (PORCINE) 5000 UNITS/ML VIAL SC SCH (05:16)
[2019-03-04 06:00] VITALS: BP 121/85
[2019-03-04] MEDS: DOCUSATE SODIUM 100 MG CAP PO SCH (08:55)
[2019-03-04] MEDS: ASPIRIN 81 MG ENTERIC TAB PO SCH (09:00)
[2019-03-04] MEDS: FAMOTIDINE 20 MG TAB PO SCH (09:00)
[2019-03-04 09:01] VITALS: BP 112/73
[2019-03-04] MEDS: CARVedilol 12.5 MG TAB PO SCH (09:01)
[2019-03-04] MEDS: ACETAMINOPHEN TAB 650MG DOSE (2X325MG) PO PRN ×2 (09:01→12:58)
[2019-03-04] MEDS: levETIRAcetam 250MG TABLET (KEPPRA) PO SCH (09:01)
[2019-03-04] MEDS: TOPIRAMATE (TopAMAX) 25 MG TAB PO SCH (09:01)
[2019-03-04] MEDS: TRIUMEQ PO SCH (09:01)
[2019-03-04] MEDS: HumaLOG INSULIN (NovoLOG) PER UNIT SC SCH ×2 (09:02→12:57)
[2019-03-04] MEDS ORDERED: ONDA4TAB6 PO (12:49)
--- NOTE | 2019-03-04 12:50 | DS.PDOC ---
Discharge Summary General Date of Admission Mar 02, 2019 at 19:37 Date of Discharge 03/04/19 Attending Physician: JOSE ARRIAGA DO Discharge Summary PROCEDURES PERFORMED DURING STAY: none ADMITTING DIAGNOSES: gastroenteritis chest pain - non cardiac syncope Dehydration ELEVATED DDIMER kidney stones hiv DISCHARGE DIAGNOSES: abdomen pain due to gastroenteritis chest pain - non cardiac syncope secondary to dehydration Dehydration mild ELEVATED DDIMER kidney stones hiv COMPLICATIONS/CHIEF COMPLAINT: Abdominal Pain. HISTORY OF PRESENT ILLNESS: This is a 43 yo female with multiple pmhx who presented to the ed for epigastric pain and syncope for a few minutes today. She denied any prodrome symptoms or any seizure like activities. She also said the day prior had chest tightness with some nausea the day before, but she thought it may have been because she was lifting a 13lb baby. She also stated that over night into yesterday morning she was vomiting and having diarrhea as well, and did not have good po intake. See H&P for details. HOSPITAL COURSE: Patient placed under observation/tele. there were no changes in tele and no further syncope episodes. She was given IVF and N,V,Diarrhea resolved. She was able to tolerate regular diet prior to discharge. DISCHARGE MEDICATIONS: Please see below. ALLERGIES: Please see below. PHYSICAL EXAMINATION ON DISCHARGE: VITAL SIGNS: Please see below. General: pleasant, obese, NAD HRRR LCTA Abdomen soft NT ND NABS LABORATORY DATA: Please see below. IMAGING: CTA Chest inconclusive for PE CT ABD/Pel IMPRESSION: 1. Large calculus in the left renal pelvis measuring 14 x 9 x 8 mm. There is left renal sinus edema which extends medial to the left kidney with no significant hydronephrosis. Findings may reflect intermittent ball-valve UPJ obstruction or possibly secondary inflammation or infection. There are small nonobstructing left renal calculi in the lower pole. 2. Status post hysterectomy. 3. Status post ventral wall hernia repair with mesh with small recurrent fat filled ventral wall hernia along the cephalad aspect of the mesh. PROGNOSIS: good ACTIVITY: as tolerated DIET: regular DISCHARGE PLAN: discharge home DISCHARGE INSTRUCTIONS: 1.do not pickling grader or walk with baby until no syncope or seizure x 3 months 2. follow up with PCP in 5-7 days 3. follow up with Dr Alvarez in 1-2 weeks for kidney stones ITEMS TO FOLLOWUP ON ON OUTPATIENT: 1. HIV labs pending DISCHARGE CONDITION: stable TIME SPENT ON DISCHARGE: 25 minutes. Vital Signs/I&Os Vital Signs Date Time Temp Pulse Resp B/P (MAP) Pulse Ox O2 Delivery O2 Flow Rate FiO2 03/04/19 09:01 68 112/73 03/04/19 06:00 97.8 19 98 03/03/19 03:15 Room Air I&O- Last 24 Hours up to 6 AM 03/04/19 05:59 Intake Total 3060 ml Output Total 2400 ml Balance 660 ml Laboratory Data Labs 24H Laboratory Tests 2 03/03/19 13:08: 03/03/19 16:43: Bedside Glucose (Misc Panel) 217H 03/03/19 20:51: Bedside Glucose (Misc Panel) 300H 03/04/19 06:13: Bedside Glucose (Misc Panel) 178H 03/04/19 11:31: Bedside Glucose (Misc Panel) 269H FSBS Laboratory Tests Test 03/03/19 16:43 03/03/19 20:51 03/04/19 06:13 03/04/19 11:31 Range/Units Bedside Glucose (Misc Panel) 217 300 178 269 70-105 MG/DL Microbiology Microbiology 03/03/19 Gastrointestinal Tract Panel (PCR) - Final, Complete Discharge Medications Scheduled Abacavir/Dolutegravir/Lamivudi (Triumeq 600-50-300 mg Tablet) 1 Tab Tab, 1 TAB PO DAILY, (Reported) Aspirin (Aspir 81) 81 Mg Tab, 81 MG PO DAILY, (Reported) Budesonide (Budesonide) 0.25 Mg/2 Ml Ampul.neb, 1 INHALATION INH BID, (Reported) Carvedilol (Coreg) 12.5 Mg Tab, 12.5 MG PO BID, (Reported) Ertugliflozin Pidolate (Steglatro) 5 Mg Tablet, 5 MG PO DAILY, (Reported) Insulin Glargine,Hum.rec.anlog (Basaglar Kwikpen U-100) 100 Unit/1 Ml Insuln.pen, 10 UNIT SC QAM, (Reported) Insulin Glargine,Hum.rec.anlog (Basaglar Kwikpen U-100) 100 Unit/1 Ml Insuln.pen, 50 UNIT SC QPM, (Reported) Topiramate (Topiramate) 25 Mg Cap, 25 MG PO TID, (Reported) Scheduled PRN Albuterol Sulf (Albuterol Sulfate) 2.5 Mg/3 Ml Vial.neb, 1 INHALATION INH Q4H PRN for SHORTNESS OF BREATH, (Reported) Benzonatate (Benzonatate) 100 Mg Capsule, 100 MG PO TID PRN for COUGH, (Reported) Ondansetron (Ondansetron Odt) 4 Mg Tab.rapdis, 4 MG PO Q6-8HP PRN for nausea/vomiting Allergies Coded Allergies: Penicillins (Verified Allergy, Intermediate, HIVES, 02/01/19) buprenorphine (Verified Allergy, Intermediate, HIVES, 02/01/19) nitroglycerin (Verified Allergy, Intermediate, "STOS HEART", 02/01/19) miconazole (Verified Allergy, Unknown, RASH, 02/01/19) morphine (Verified Adverse Reaction, Unknown, RESPIRATORY.DEPRESSION, 02/01/19) JOSE ARRIAGA DO Mar 04, 2019 12:25
[2019-03-05 00:06] LABS: % CD4+ LYMPHS 25.5 % (30.8-58.5); ABSOLUTE CD4 HELPER 510 /uL (359-1519); BASOPHILS 1 % (Not Estab.); EOSINOPHILS 3 % (Not Estab.); EOSINOPHILS ABSOLUTE 0.2 x10E3/uL (0.0-0.4); HCT 40.7 % (34.0-46.6); HGB 13.2 g/dL (11.1-15.9); LYMPHOCYTES 41 % (Not Estab.); MCH 28.6 pg (26.6-33.0); MCHC 32.4 g/dL (31.5-35.7); MCV 88 fL (79-97); MONOCYTES 7 % (Not Estab.); MONOCYTES ABSOLUTE 0.3 x10E3/uL (0.1-0.9); NEUTROPHILS 48 % (Not Estab.); NEUTROPHILS ABSOLUTE 2.3 x10E3/uL (1.4-7.0); PLT 194 x10E3/uL (150-450); RBC 4.61 x10E6/uL (3.77-5.28); RDW 13.9 % (12.3-15.4); WBC 4.8 x10E3/uL (3.4-10.8)
--- NOTE | 2019-03-05 18:48 | ECHO ---
DATE OF PROCEDURE: 03/04/2019 AGE: 43 HEIGHT: 64 inches. GENDER: Female. WEIGHT: 304 pounds. BODY SURFACE AREA: 2.34 meters squared. LOCATION: Inpatient 4 pavilion room 4206. REFERRING PHYSICIAN: Nicole Lynn INDICATION: Chest pain. MEASUREMENTS 2-D MEASUREMENTS: RV - 3.1 cm LV - 5.4 cm Septum 0.9 cm Posterior wall 0.9 cm Aortic root 3.2 cm LA - 3.6 cm LVEF - 78% DOPPLER MEASUREMENTS: AV - 1.18 m/s LVOT - 1.07 m/s LVOT diameter 2.0 cm MV-E 89 A; 52 E/A ratio 1.7 Early mitral deceleration time 208 ms E-prime 9.4 A prime 6 E/E prime ratio 9.5 PCWP: 11.8 PV: 0.75 m/s Pulmonary artery acceleration time 109 ms PASP: 30 mmHg IVC: 1.8 cm COMMENTS: Normal sinus rhythm without intraventricular conduction disturbance. Technically difficult study in light of the patient's body habitus but diagnostically useful information was still obtained. Normal left ventricular size, wall thickness and hyperkinetic wall motion. Normal left atrial size and Doppler assessment of LV diastolic function and estimated mean left atrial pressure. Normal right heart chamber sizes and motion with Doppler sign of no more than borderline pulmonary hypertension. Normal IVC size and collapse against an elevated central venous pressure. Normal aortic diameter. No apparent intracardiac mass or pericardial effusion.
== END 2019-03-04 14:20 | disposition home or self-care (01) ==
LOC: M ED 19:36 → M ED INP 19:37 → M MSPAV 03-03 03:26
PROVIDERS: ADMIT Internal Medicine; ATTEND Family Medicine
DX: K52.9 Noninfective gastroenteritis and colitis, unspecified (principal); R10.13 Epigastric pain; R07.89 Other chest pain; E86.0 Dehydration; R55 Syncope and collapse; R79.1 Abnormal coagulation profile; N20.0 Calculus of kidney; B20 Human immunodeficiency virus [HIV] disease; E11.9 Type 2 diabetes mellitus without complications; J44.9 Chronic obstructive pulmonary disease, unspecified; R56.9 Unspecified convulsions; G35 Multiple sclerosis; Z85.43 Personal history of malignant neoplasm of ovary; F17.210 Nicotine dependence, cigarettes, uncomplicated; Z79.899 Other long term (current) drug therapy; Z79.82 Long term (current) use of aspirin; Z79.4 Long term (current) use of insulin; Z79.51 Long term (current) use of inhaled steroids; Z88.0 Allergy status to penicillin; Z88.5 Allergy status to narcotic agent; Z88.3 Allergy status to other anti-infective agents
CPT/HCPCS: 36415; 71045; 71275; 74177; 78582; 80048; 80061; 80076; 81001; 82550; 82553; 83036; 83690; 83735; 85025; 85027; 85379; 85610; 85730; 86361; 87507; 93005; 93041; 93306; 93970; 94760; 96372; 96374; 99291; A9540; A9567; J1885; Q9967

== ENCOUNTER 2019-04-05 12:20 | Emergency (ER) | payer OTHER ==
[~2019-04-05 12:20] MED LIST changes: +BASA100I SC; +BENZ-18 PO; +BUDE0.254 INH; +ONDA4TAB6 PO; +STEG5TAB PO
[2019-04-05 12:42] LABS: BASO # 0.1 10^3/uL (0.0-0.2); BASO % 0.8 % (0.0-1.0); EOS # 0.1 10^3/uL (0.0-0.5); EOS % 1.7 % (0.0-3.0); HEMATOCRIT 42.2 % (36.0-47.0); HEMOGLOBIN 13.8 g/dl (12.0-15.5); LYMPH # 2.8 10^3/uL (1.5-5.0); LYMPH % 41.8 % (24.0-44.0); MEAN CORPUSCULAR HEMOGLOBIN 28.9 pg (27.0-33.0); MEAN CORPUSCULAR HGB CONC 32.7 g/dl (32.0-36.5); MEAN CORPUSCULAR VOLUME 88.5 fl (80.0-96.0); MONO # 0.4 10^3/uL (0.0-0.8); MONO % 5.6 % (0.0-5.0); NEUTROPHILS # 3.3 10^3/uL (1.5-8.5); NEUTROPHILS % 49.9 % (36.0-66.0); PLATELET COUNT, AUTOMATED 194 10^3/uL (150-450); RED BLOOD COUNT 4.77 10^6/uL (4.00-5.40); WHITE BLOOD COUNT 6.6 10^3/uL (4.0-10.0)
[2019-04-05 13:10] LABS: BLOOD UREA NITROGEN 9 MG/DL (7-18); CALCIUM LEVEL 8.6 MG/DL (8.5-10.1); CARBON DIOXIDE LEVEL 28 MEQ/L (21-32); CHLORIDE LEVEL 103 MEQ/L (98-107); CK-MB VALUE MASS < 1.0 NG/ML (<3.6); CPK CREATINE PHOSPHOKINASE 51 U/L (26-192); CREATININE FOR GFR 0.77 MG/DL (0.55-1.30); GLOMERULAR FILTRATION RATE > 60.0 (>58); GLUCOSE, FASTING 232 MG/DL (70-100); MB/CK RELATIVE INDEX 1.96 (< OR =4); POTASSIUM SERUM 3.7 MEQ/L (3.5-5.1); SODIUM LEVEL 138 MEQ/L (136-145); TROPONIN I < 0.02 NG/ML (< 0.10)
[2019-04-05] MEDS ORDERED: LORazepam 1 MG TAB PO STA (13:32)
[2019-04-05 13:46] VITALS: BP 130/79
--- NOTE | 2019-04-05 14:42 | REP ---
AP PORTABLE CHEST: 04/05/2019. Comparison: AP chest 03/03/2019, 02/01/2019, CTA 03/02/2019. Clinical history: Chest pain. Findings: The lung recinos are well inflated. There is no definite infiltrate or effusion. Epicardial fat pad along the left heart border is seen as on CT. A 1 month ago. The aorta and airway are intact. There is no widening the mediastinum. No parenchymal mass or mediastinal contour abnormality. Bones intact. Impression: 1. No acute cardiopulmonary change. Electronically Signed by Abimael Gilman MD 04/05/2019 07:44 P
--- NOTE | 2019-04-05 19:26 | ECGEPIP ---
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
== END 2019-04-05 13:58 | disposition home or self-care (01) ==
LOC: M ED 12:20
DX: F41.9 Anxiety disorder, unspecified (principal); E11.9 Type 2 diabetes mellitus without complications; I10 Essential (primary) hypertension; K21.9 Gastro-esophageal reflux disease without esophagitis; E78.5 Hyperlipidemia, unspecified; Z79.899 Other long term (current) drug therapy; Z79.82 Long term (current) use of aspirin; Z79.4 Long term (current) use of insulin; Z88.0 Allergy status to penicillin; Z88.5 Allergy status to narcotic agent; Z88.8 Allergy status to other drugs, medicaments and biological substances; F17.210 Nicotine dependence, cigarettes, uncomplicated

== ENCOUNTER → 2019-04-17 | Outpatient (REF) | payer OTHER | LOC: M SFHCPLAZ 15:13 | PROVIDERS: ATTEND Internal Medicine Infectious Disease | DX: J02.9 Acute pharyngitis, unspecified (principal) ==

== ENCOUNTER 2020-04-23 21:04 | Emergency (ER) | payer OTHER ==
[~2020-04-23 21:04] MED LIST changes: -ASPI81TA85 PO; +ASPI81TA86 PO
[2020-04-23] MEDS ORDERED: TRAZ-252 PO (21:22)
[2020-04-23] MEDS ORDERED: GABA-845 PO (21:25)
[2020-04-23 22:09] LABS: BASO % 0.5 % (0.0-1.0); EOS # 0.2 10^3/uL (0.0-0.5); EOS % 2.6 % (0.0-3.0); HEMATOCRIT 45.3 % (36.0-47.0); HEMOGLOBIN 14.3 g/dl (12.0-15.5); LYMPH # 2.9 10^3/uL (1.5-5.0); LYMPH % 44.7 % (24.0-44.0); MEAN CORPUSCULAR HEMOGLOBIN 28.3 pg (27.0-33.0); MEAN CORPUSCULAR HGB CONC 31.6 g/dl (32.0-36.5); MEAN CORPUSCULAR VOLUME 89.7 fl (80.0-96.0); MONO # 0.4 10^3/uL (0.0-0.8); MONO % 5.5 % (0.0-5.0); NEUTROPHILS % 46.4 % (36.0-66.0); PLATELET COUNT, AUTOMATED 160 10^3/uL (150-450); RED BLOOD COUNT 5.05 10^6/uL (4.00-5.40); WHITE BLOOD COUNT 6.5 10^3/uL (4.0-10.0)
--- NOTE | 2020-04-23 22:14 | REPVR ---
PROCEDURE INFORMATION: Exam: CT Head Without Contrast Exam date and time: 04/23/2020 9:49 PM Age: 44 years old Clinical indication: Syncope and collapse TECHNIQUE: Imaging protocol: Computed tomography of the head without contrast. Radiation optimization: All CT scans at this facility use at least one of these dose optimization techniques: automated exposure control; mA and/or kV adjustment per patient size (includes targeted exams where dose is matched to clinical indication); or iterative reconstruction. COMPARISON: No relevant prior studies available. FINDINGS: Brain: There is no evidence of intracranial hemorrhage. No mass effect or midline shift is seen. Gill-white differentiation is preserved throughout. Cerebral ventricles: The ventricles are normal in size and configuration. Bones/joints: Unremarkable. No acute fracture. Paranasal sinuses: The visualized sinuses are unremarkable. Mastoid air cells: There is no mastoid effusion detected. Soft tissues: Unremarkable. IMPRESSION: No acute intracranial pathology demonstrated by CT. Electronically signed by: Janina Mauricio On 04/23/2020 22:13:55 PM
[2020-04-23 22:49] LABS: BLOOD UREA NITROGEN 10 MG/DL (7-18); CALCIUM LEVEL 8.8 MG/DL (8.5-10.1); CARBON DIOXIDE LEVEL 29 MEQ/L (21-32); CHLORIDE LEVEL 102 MEQ/L (98-107); CK-MB VALUE MASS < 1.0 NG/ML (<3.6); CPK CREATINE PHOSPHOKINASE 36 U/L (26-192); CREATININE FOR GFR 0.98 MG/DL (0.55-1.30); GLOMERULAR FILTRATION RATE > 60.0 (>58); GLUCOSE, FASTING 401 MG/DL (70-100); MB/CK RELATIVE INDEX 2.78 (< OR =4); POTASSIUM SERUM 4.3 MEQ/L (3.5-5.1); SODIUM LEVEL 136 MEQ/L (136-145); TROPONIN I < 0.02 NG/ML (< 0.10)
[2020-04-23 23:10] VITALS: BP 134/88
--- NOTE | 2020-04-24 08:18 | ECGEPIP ---
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
== END 2020-04-23 23:15 | disposition home or self-care (01) ==
LOC: M ED 21:04
DX: R55 Syncope and collapse (principal); E11.65 Type 2 diabetes mellitus with hyperglycemia; Z79.4 Long term (current) use of insulin; J44.9 Chronic obstructive pulmonary disease, unspecified; I10 Essential (primary) hypertension; B20 Human immunodeficiency virus [HIV] disease; F17.200 Nicotine dependence, unspecified, uncomplicated; F20.0 Paranoid schizophrenia; Z88.0 Allergy status to penicillin; Z88.6 Allergy status to analgesic agent; Z88.8 Allergy status to other drugs, medicaments and biological substances

== ENCOUNTER → 2020-07-26 | Outpatient (CLI) | payer SELFPAY ==
[~2020-07-26] MED LIST changes: +GABA-845 PO; +TRAZ-252 PO
== END ==
LOC: M LABSMTC 12:07
PROVIDERS: ATTEND Pediatrics
DX: Z20.822 Contact with and (suspected) exposure to COVID-19 (principal)

== ENCOUNTER → 2020-08-30 | Outpatient (REF) | payer OTHER | LOC: M SFHCPLAZ 13:37 | PROVIDERS: ATTEND Family Medicine | DX: Z53.9 Procedure and treatment not carried out, unspecified reason (principal); E11.40 Type 2 diabetes mellitus with diabetic neuropathy, unspecified ==

== ENCOUNTER → 2020-09-06 | Outpatient (REF) | payer OTHER ==
[2020-09-06 15:34] LABS: HEMOGLOBIN 15.6 g/dl (12.0-15.5); MEAN CORPUSCULAR HEMOGLOBIN 29.7 pg (27.0-33.0); MEAN CORPUSCULAR HGB CONC 31.8 g/dl (32.0-36.5); MEAN CORPUSCULAR VOLUME 93.2 fl (80.0-96.0); PLATELET COUNT, AUTOMATED 178 10^3/uL (150-450); RED BLOOD COUNT 5.26 10^6/uL (4.00-5.40); WHITE BLOOD COUNT 6.6 10^3/uL (4.0-10.0)
[2020-09-06 16:05] LABS: ALBUMIN 3.3 GM/DL (3.2-5.2); ALT/SGPT 45 U/L (12-78); BILIRUBIN,TOTAL 0.5 MG/DL (0.2-1.0); BLOOD UREA NITROGEN 8 MG/DL (7-18); CALCIUM LEVEL 9.1 MG/DL (8.5-10.1); CARBON DIOXIDE LEVEL 26 MEQ/L (21-32); CHLORIDE LEVEL 99 MEQ/L (98-107); CHOLESTEROL LEVEL 205 MG/DL (<200); CHOLESTEROL RISK RATIO 4.659 (<5); CREATININE FOR GFR 0.91 MG/DL (0.55-1.30); GLOMERULAR FILTRATION RATE > 60.0 (>58); GLUCOSE, FASTING 391 MG/DL (70-100); HDL CHOLESTEROL 44 MG/DL (>40); LDL CHOLESTEROL 115 MG/DL (<100); NON-HDL-C 161 MG/DL; POTASSIUM SERUM 4.5 MEQ/L (3.5-5.1); SODIUM LEVEL 135 MEQ/L (136-145); TOTAL PROTEIN 8.6 GM/DL (6.4-8.2); TRIGLYCERIDES LEVEL 230 MG/DL (<150)
[2020-09-06 16:25] LABS: HEMOGLOBIN A1c 9.9 %
== END ==
LOC: M SFHCPLAZ 13:35
PROVIDERS: ATTEND Family Medicine
DX: E11.40 Type 2 diabetes mellitus with diabetic neuropathy, unspecified (principal)

== ENCOUNTER → 2020-10-12 | Outpatient (CLI) | payer OTHER ==
--- NOTE | 2020-10-12 14:08 | REPPI ---
INDICATION: R05/COUGH. COMPARISON: Portable chest dated 04/05/2019. TECHNIQUE: Upright PA and lateral chest. FINDINGS: The lung recinos are clear. Cardiac size is normal. The luly, mediastinum and skeletal structures are unremarkable. IMPRESSION: Essentially negative PA and lateral chest <Electronically signed by Rai Kessler > 10/12/20 1404
== END ==
LOC: M PLAIMG 11:56
PROVIDERS: ATTEND Family Medicine
DX: R05 Cough (principal)

== ENCOUNTER → 2020-10-12 | Outpatient (REF) | payer OTHER ==
[2020-10-14 17:11] LABS: % CD8 Pos Lymph 67.1 % (12.0-35.5); %CD4 Pos Lymphs 24.4 % (30.8-58.5); ABS Basophils 0.1 x10E3/uL (0.0-0.2); ABS Eosinophils 0.2 x10E3/uL (0.0-0.4); ABS Lymphs 2.6 x10E3/uL (0.7-3.1); ABS Monocytes 0.4 x10E3/uL (0.1-0.9); ABS Neutophils 2.8 x10E3/uL (1.4-7.0); Abs CD4 Helper 634 /uL (359-1519); Abs CD8 Suppres 1745 /uL (109-897); CD4/CD8 Ratio 0.36 (0.92-3.72); Eosinophils 3 % (Not Estab.); HCT 45.9 % (34.0-46.6); HIV-1 RNA PCR QUANT 2 LC550285 230 copies/mL (.); HIV-1 RNA PCR QUANT 3 LC550285 2.362 (.); Immature Grans 0 % (Not Estab.); Lymphocytes 44 % (Not Estab.); MCH 30.2 pg (26.6-33.0); MCHC 32.7 g/dL (31.5-35.7); MCV 92 fL (79-97); Monocytes 6 % (Not Estab.); Neutrophils 46 % (Not Estab.); Platelets 176 x10E3/uL (150-450); RBC 4.97 x10E6/uL (3.77-5.28); RDW 12.2 % (11.7-15.4)
== END ==
LOC: M SFHCPLAZ 11:55
PROVIDERS: ATTEND Family Medicine
DX: R05 Cough (principal); B20 Human immunodeficiency virus [HIV] disease

== ENCOUNTER → 2020-11-30 | Outpatient (REF) | payer OTHER ==
[~2020-11-30] MED LIST changes: +GABA-283 PO; -GABA-845 PO
[2020-11-30 14:05] LABS: HEMOGLOBIN A1c 11.9 %
== END ==
LOC: M SFHCPLAZ 10:02
PROVIDERS: ATTEND Family Medicine
DX: E11.40 Type 2 diabetes mellitus with diabetic neuropathy, unspecified (principal); B20 Human immunodeficiency virus [HIV] disease